=== PATIENT | male | born 1950 | race Caucasian/White ===

== ENCOUNTER 2019-06-09 19:12 | Emergency (ER) | payer MEDICARE, SELFPAY ==
[2019-06-09 19:18] VITALS: BP 166/105; PULSE 108; RESP 16; TEMP 37.3; O2SAT 99; BMI 23.7
--- NOTE | 2019-06-09 19:27 | W.ED.ANIMALB ---
HPI - Animal Bite General: Chief Complaint: Animal Bite Stated Complaint: dogbite Time Seen by Provider: 06/09/19 19:14 History of Present Illness: HPI narrative: Patient is a 69-year-old male who presents to the emergency department with complaint of dog bite. Patient states he was bitten by a pit bull to the neck and left hand. Location of the dog is known. 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 Patient presents the emergency room for evaluation. He does not know the status of the dog's immunizations. Patient states he does not believe in immunizations or medicine. He declines any tetanus or medication. He believes in colloidal silver. We have discussed at length wound care and appropriate treatment plan but patient declines any treatment. He has capacity rational thought process. He will return for worsening symptoms or concerns. He denies any shortness of breath or difficulty swallowing. Denies any loss of function or sensation to the left hand from dog bite. Injury occurred just prior to arrival. MD complaint: animal bite Animal: dog Description of animal: unknown animal and immunizations unknown Mechanism: bite Location: neck Location - Extremities: Left: hand (2 puncture wounds, no bleeding) Pain description: dull Severity scale (1-10): 3 Context: unprovoked Associated symptoms: Reports no associated symptoms; Deny fever(s) or headache(s) Treatments prior to arrival: pressure Review of Systems Const: Denies: fever Eyes: Denies: change in vision ENMT: Denies: dry mouth Card: Denies: edema Resp: Denies: shortness of breath GI: Denies: abdominal pain : Denies: flank pain or painful urination Musc: Denies: extremity swelling or redness Skin/Breast: Reports: other (open wound to left side of neck, 2 puncture wounds to left hand); Denies: rash or skin swelling Neuro: Denies: headache or weakness in extremities Psych: Denies: anxiety Endo: Denies: excessive urination Santiago/Lymph: Denies: purpura All/Imm: Denies: hives PFSH ED PFSH: Statuses (acute, chronic, etc) shown below reflect problem list status as previously entered and may not be historically accurate Social History Smoking and tobacco status: never smoked Physical Exam Const: COMMON NORMALS: no apparent distress ORIENTATION/CONSCIOUSNESS: Yes oriented to person and Yes oriented to place HENMT: COMMON NORMALS: normocephalic HEAD & SCALP: normal to inspection and normocephalic FACE & SINUS IMAGES: 1. 2 cm open wound, no bleeding THROAT: other (open wound. NO deep penetration. No airway involvement) Eye: COMMON NORMALS: PERRL, EOMs intact bilaterally and conjunctivae normal GENERAL EYE: normal appearance of both eyes CONJUNCTIVA: Yes conjunctivae normal PUPIL: Yes PERRL Neck/C-Spine: COMMON NORMALS: full ROM, no lymphadenopathy, supple and no meningeal signs GENERAL: Yes normal visual inspection and Yes trachea midline Lymph: LYMPHATIC: no lymphadenopathy noted Chest: COMMONS NORMALS: inspection of chest normal Resp: COMMON NORMALS: normal respiratory effort and clear to auscultation bilaterally EFFORT & INSPECTION: Yes able to speak in complete sentences AUSCULTATION: clear to auscultation bilaterally Cardio: COMMON NORMALS: regular rate and regular rhythm RATE: regular rate RHYTHM: regular rhythm GI: INSPECTION: Yes normal to inspection AUSCULTATION: Yes normoactive bowel sounds : COMMON NORMALS: Yes no CVA tenderness BLADDER/KIDNEY EXAM: Yes no CVA tenderness Back/Pelvis: COMMON NORMALS: no CVA tenderness THORACIC SPINE/UPPER BACK: Yes normal to inspection LUMBAR SPINE/LOWER BACK: Yes normal to inspection Extremity: COMMON NORMALS: normal to inspection, full ROM and normal capillary refill GENERAL: Yes normal exam except as noted Neuro: COMMON NORMALS: CN's II-XII intact bilaterally SENSORIUM/ORIENTATION: Yes oriented to person and Yes oriented to place MENINGEAL SIGNS: Yes no meningeal signs SPEECH: speech normal GAIT: Yes normal gait Psych: COMMON NORMALS: mental status grossly normal, thought process normal, cooperative and speech normal APPEARANCE: Yes grossly normal SPEECH: Yes normal speech THOUGHT PROCESS: normal thought process Skin: COMMON NORMALS: no rashes or lesions noted and skin turgor normal NARRATIVE SKIN EXAM: 2 puncture wounds noted to left hand. No bleeding. Sensation motor function left hand is intact. GENERAL SKIN EXAM: no rashes or lesions noted, elasticity normal and turgor normal Course ED course: Discussed need to allow open wounds to drain and proper wound care. I have all discussed need for tetanus and antibiotics. Patient states he does home remedies along with colloidal silver and does not want antibiotics or tetanus. discussed risk of infection, from dog bite. Patient verbalized understanding. He has capacity rational thought process and verbalized understanding of risks and again declines any medications or tetanus. He will return for worsening symptoms or concerns. MDM - Animal Bite MDM Narrative: Medical decision making narrative: Patient has declined any medical therapy. Will provide Augmentin prescription. If patient does not fill this prescription he understands the risk of infection. He will return if worsening symptoms or concerns. Nursing staff will work with [facility]/animal control to quarantine animal for ongoing evaluation. Since animal can be located with provided address. Do not see indication for rabies prophylaxis at this time. Wounds will not be closed secondary to high risk of infection. Discussed wound care and healing by secondary intention. Patient has no airway distress or indication for additional laboratory or imaging studies. Discharge Plan Discharge Patient Disposition: Home, Self-Care Clinical Impression: Bite by animal Condition: Stable Prescriptions: New amoxicillin-pot clavulanate [Augmentin] 875-125 mg tablet 1 tab PO Q12H Qty: 20 RF: 0 Discharge Orders: Discharge Order (Routine); Ordered 06/09/19 Ordered By: Patrick Pascual Discharge Diet: Advance as tolerated Discharge Activity: Increase activity as tolerated Patient Instructions: Animal Bite (ED), Wound Care (General) Activity Restrictions/Additional Instructions: I recommend filling your Augmentin prescription and taking as directed. Wash wounds twice a day. Use gauze dressing. Avoid any occlusive dressing such as Band-Aids. Follow-up with primary care provider for ongoing evaluation. Return for worsening symptoms, questions or concerns. Specifically any redness, drainage, fever or increasing pain/shortness of breath. Recommend getting your tetanus updated at the health department. Coding Level of Care Code ED Kidney Puller for Ani Roth
[2019-06-09 19:51] VITALS: BP 166/105; PULSE 100; RESP 16; O2SAT 97
--- NOTE | 2019-06-10 00:05 | PC.NURSE ---
pt stated he had already contacted authorities about the dog.
== END 2019-06-09 19:51 | disposition home or self-care (01) ==
LOC: ER 19:50
PROVIDERS: Emergency Provider Nurse Practitioner
DX: S11.85XA Open bite of other specified part of neck, initial encounter (principal); W54.0XXA Bitten by dog, initial encounter
CPT/HCPCS: 99281

== ENCOUNTER 2024-01-30 13:35 | Outpatient (CLI) | payer MEDICARE, OTHER, SELFPAY | END 2024-01-30 13:36 | disposition home or self-care (01) | LOC: SLEEP 13:39 | PROVIDERS: Visit Provider Family Medicine | DX: G47.33 Obstructive sleep apnea (adult) (pediatric) (principal) | CPT/HCPCS: G0399 ==